=== PATIENT | male | born 1960 | race Caucasian/White ===

== ENCOUNTER 2018-12-26 08:07 | Day surgery (SDC) | payer OTHER, BC ==
[2018-12-26] MEDS ORDERED: FENTAnyl 50 MCG/ML VIAL (08:54)
[2018-12-26] MEDS ORDERED: LIDOCAINE 2% (SDV) 5 ML INJ (08:54)
[2018-12-26] MEDS ORDERED: CEFAZOLIN 1 GM INJ (08:54)
[2018-12-26] MEDS ORDERED: PROPOFOL 20 ML (08:54)
[2018-12-26] MEDS ORDERED: MIDAZOLAM 1 MG/ML 2 ML INJ (08:54)
[2018-12-26] MEDS ORDERED: HYDROmorphONE 1 MG/5 ML IV SYRINGE IV ×3 (09:00)
[2018-12-26] MEDS ORDERED: LABETALOL HCL 20MG INJ IV (09:00)
[2018-12-26] MEDS ORDERED: ONDANSETRON 4 MG INJ IV (09:00)
[2018-12-26] MEDS ORDERED: MIDAZOLAM 1 MG/ML 2 ML INJ IV (09:00)
[2018-12-26] MEDS ORDERED: MEPERIDINE 25 MG INJ IV (09:00)
[2018-12-26] MEDS ORDERED: OXYCODONE/ACETAMINOPHEN (5/325) TAB PO ×2 (09:00)
[2018-12-26 09:16] LABS: ADD MAN DIFF? NO
[2018-12-26 09:19] LABS: WHITE BLOOD COUNT 6.4 10^3/ul (4.8-10.8)
[2018-12-26 09:19] LABS: BASOPHILS % 0.5 % (0.0-2.0); EOSINOPHILS # 0.2 10^3/ul (0.0-0.5); EOSINOPHILS % 2.3 % (0.0-7.0); HEMATOCRIT 46.7 % (42.0-52.0); HEMOGLOBIN 15.9 g/dl (14.0-18.0); LYMPHOCYTES # 1.9 10^3/ul (0.8-2.9); LYMPHOCYTES % 29.6 % (15.0-51.0); MEAN CORPUSCULAR HEMOGLOBIN 29.9 pg (29.0-33.0); MEAN CORPUSCULAR VOLUME 87.8 fl (82.0-101.0); MEAN PLATELET VOLUME 8.8 fl (7.4-10.4); MONOCYTE # 0.6 10^3/ul (0.3-0.9); MONOCYTES % 8.9 % (0.0-11.0); NEUTROPHIL # 3.8 10^3/ul (1.6-7.5); NEUTROPHILS % 58.4 % (39.0-77.0); PLATELET COUNT 249 10^3/UL (140-415); RED BLOOD COUNT 5.32 10^6/ul (4.70-6.10); RED CELL DISTRIBUTION WIDTH 12.5 % (11.5-14.5)
[2018-12-26] MEDS ORDERED: LIDOCAINE 1% (MPF) 30 ML INJ (09:22)
[2018-12-26] MEDS ORDERED: POLYMYXIN/BACITRACIN 1L IRRIG (09:22)
[2018-12-26] MEDS ORDERED: POVIDONE IODINE 10% 28.4 GM OINT (09:22)
[2018-12-26 09:36] LABS: ALANINE AMINOTRANSFERASE 22 IU/L (13-69); ALBUMIN 4.5 g/dl (3.3-4.9); ALBUMIN/GLOBULIN RATIO 1.36; ALKALINE PHOSPHATASE 73 IU/L (42-121); ANION GAP 10 (5-13); ASPARTATE AMINO TRANSFERASE 32 IU/L (15-46); BILIRUBIN,INDIRECT 0.6 mg/dl (0-1.1); BILIRUBIN,TOTAL 0.6 mg/dl (0.2-1.3); BLOOD UREA NITROGEN 14 mg/dl (7-20); CALCIUM 9.7 mg/dl (8.4-10.2); CARBON DIOXIDE 29 mmol/L (21-31); CHLORIDE 103 mmol/L (97-110); CREATININE 0.74 mg/dl (0.61-1.24); Estimated GFR > 60 mL/min (>60); GLUCOSE 120 mg/dl (70-220); SODIUM 142 mmol/L (135-144); TOTAL PROTEIN 7.8 g/dl (6.1-8.1)
[2018-12-26 09:37] LABS: POTASSIUM 5.2 mmol/L (3.5-5.1)
[2018-12-26] MEDS ORDERED: ONDANSETRON 4 MG INJ (09:53)
[2018-12-26] MEDS ORDERED: METOCLOPRAMIDE 10 MG INJ (09:53)
[2018-12-26] MEDS ORDERED: FAMOTIDINE 20 MG INJ (09:53)
[2018-12-26] MEDS: LIDOCAINE 1% (MPF) 30 ML INJ (10:11)
[2018-12-26] MEDS: POLYMYXIN/BACITRACIN 1L IRRIG (10:13)
[2018-12-26] MEDS ORDERED: KETOROLAC 30 MG INJ (10:27)
[2018-12-26] MEDS: POVIDONE IODINE 10% 28.4 GM OINT (10:37)
== END 2018-12-26 13:15 | disposition home or self-care (01) ==
LOC: SDS 08:07
DX: M20.5X2 Other deformities of toe(s) (acquired), left foot (principal); I10 Essential (primary) hypertension; E11.9 Type 2 diabetes mellitus without complications
CPT/HCPCS: 28124; 80053; 82962; 85025; 88304; 88311